=== PATIENT | male | born 1990 | race African-American/Black ===

== ENCOUNTER 2018-07-02 03:14 | Emergency (ER) | payer BC ==
[~2018-07-02] VITALS: Ht 188 cm; Wt 88.5 kg
[2018-07-02] MEDS ORDERED: PROMETH-CODEIN 65 ML PO (03:45)
[2018-07-02 03:59] VITALS: BP 143/78
== END 2018-07-02 04:00 | disposition home or self-care (01) ==
LOC: M.ERS 03:14
DX: J06.9 Acute upper respiratory infection, unspecified (principal); F17.210 Nicotine dependence, cigarettes, uncomplicated

== ENCOUNTER 2018-08-15 19:49 | Emergency (ER) | payer BC ==
[~2018-08-15] VITALS: Ht 188 cm; Wt 90.7 kg
[~2018-08-15 19:49] MED LIST: PROMETH-CODEIN 65 ML PO
[2018-08-15] MEDS ORDERED: CENTANY30 GM TOP (21:07)
[2018-08-15 21:35] VITALS: BP 159/91
== END 2018-08-15 21:43 | disposition home or self-care (01) ==
LOC: M.ERS 19:49
DX: S61.210A Laceration without foreign body of right index finger without damage to nail, initial encounter (principal); F17.210 Nicotine dependence, cigarettes, uncomplicated; W45.8XXA Other foreign body or object entering through skin, initial encounter; Y93.G3 Activity, cooking and baking; Y92.89 Other specified places as the place of occurrence of the external cause; Y99.8 Other external cause status

== ENCOUNTER 2018-08-16 22:39 | Emergency (ER) | payer BC ==
[~2018-08-16] VITALS: Ht 157.5 cm; Wt 98.9 kg
[~2018-08-16 22:39] MED LIST changes: +CENTANY30 GM TOP
[2018-08-16 23:35] VITALS: BP 142/76
== END 2018-08-16 23:36 | disposition home or self-care (01) ==
LOC: M.ERS 22:39
DX: S61.210D Laceration without foreign body of right index finger without damage to nail, subsequent encounter (principal); X58.XXXD Exposure to other specified factors, subsequent encounter; F17.210 Nicotine dependence, cigarettes, uncomplicated

== ENCOUNTER 2018-08-26 11:40 | Emergency (ER) | payer BC ==
[~2018-08-26] VITALS: Ht 188 cm; Wt 99.8 kg
[2018-08-26 12:10] VITALS: BP 142/79
== END 2018-08-26 12:19 | disposition home or self-care (01) ==
LOC: M.ERS 11:40
DX: S61.210D Laceration without foreign body of right index finger without damage to nail, subsequent encounter (principal); X58.XXXD Exposure to other specified factors, subsequent encounter; F17.210 Nicotine dependence, cigarettes, uncomplicated

== ENCOUNTER 2018-10-24 01:38 | Emergency (ER) | payer BC ==
[~2018-10-24] VITALS: Ht 188 cm; Wt 97.5 kg
[2018-10-24] MEDS ORDERED: IBUPROFEN 800800 MG PO (02:25)
[2018-10-24] MEDS ORDERED: TRAMADOL 50 MG50 MG PO (02:25)
[2018-10-24 02:35] VITALS: BP 112/74
== END 2018-10-24 04:07 | disposition home or self-care (01) ==
LOC: M.ERS 01:38
DX: S83.8X2A Sprain of other specified parts of left knee, initial encounter (principal); F17.210 Nicotine dependence, cigarettes, uncomplicated; X50.0XXA Overexertion from strenuous movement or load, initial encounter; Y92.89 Other specified places as the place of occurrence of the external cause; Y99.0 Civilian activity done for income or pay; Y99.8 Other external cause status

== ENCOUNTER 2019-08-06 22:42 | Emergency (ER) | payer BC ==
[~2019-08-06] VITALS: Ht 188 cm; Wt 99.8 kg
[~2019-08-06 22:42] MED LIST changes: +IBUPROFEN 800800 MG PO; +TRAMADOL 50 MG50 MG PO
[2019-08-06] MEDS ORDERED: CIPROFLOXIN HC2.5 M1 OPHTHALMIC (23:36)
[2019-08-06 23:43] VITALS: BP 145/89
== END 2019-08-06 23:43 | disposition home or self-care (01) ==
LOC: M.ERS 22:42
DX: H10.9 Unspecified conjunctivitis (principal); F17.210 Nicotine dependence, cigarettes, uncomplicated